=== PATIENT | female | born 1955 | race Caucasian/White ===

== ENCOUNTER 2023-04-25 18:01 | Emergency (ER) | payer BC, SELFPAY ==
[2023-04-25 18:05] VITALS: BP 147/101; PULSE 77; RESP 20; TEMP 36.7; O2SAT 97; BMI 37.5
[2023-04-25 18:08] VITALS: BP 147/101
--- NOTE | 2023-04-25 18:44 | PC.NURSE ---
pt states she was flown to another hospital d/t a critically low sodium. pt reports the family purposly having foods and drinks in the house and this may be making her feel sick. she goes off into tangents and has to be redirected several times during assessment
--- NOTE | 2023-04-25 18:47 | PC.NURSE ---
bilat lungs clear with no cough observed with assessment
[2023-04-25] MEDS: 0.9 % SODIUM CHLORIDE 1,000 ML 999 ML IV (18:50)
[2023-04-25 19:00] LABS: Basophils Absolute Auto 0.1 10^3/uL (0.0-0.1); Basophils Percent Auto 0.6 % (0.2-2.0); Eosinophils Percent Auto 0.3 % (0.9-7.0); Hematocrit 41.7 % (36.0-48.0); Hemoglobin 14.1 g/dL (12.0-16.0); Immature Granulocytes Abs Auto 0.04 10^3/uL (0.00-0.03); Immature Granulocytes Pct Auto 0.4 % (0.0-0.5); Lymphocytes Absolute Auto 3.3 10^3/uL (1.2-3.8); Lymphocytes Percent Auto 34.7 % (20.5-60.0); Mean Corpuscular HGB Conc 33.8 g/dL (29.9-35.2); Mean Corpuscular Hemoglobin 29.6 pg (26.7-34.0); Mean Corpuscular Volume 87.6 fL (81.0-99.0); Mean Platelet Volume 9.8 fL (9.5-13.5); Monocytes Absolute Auto 0.9 10^3/uL (0.3-0.8); Monocytes Percent Auto 9.1 % (1.7-12.0); Neutrophils Absolute Auto 5.3 10^3/uL (1.4-6.5); Neutrophils Percent Auto 54.9 % (43.0-75.0); Platelet Count 334 10^3/uL (150-450); Red Blood Count 4.76 10^6/uL (4.20-5.40); Red Cell Distribution Width 13.8 % (11.0-15.0); White Blood Count 9.6 10^3/uL (4.0-11.0)
[2023-04-25 19:10] LABS: Anion Gap 12.3; BUN Creatinine Ratio 26.7; Calcium 9.3 mg/dL (8.5-10.1); Carbon Dioxide 28.8 mmol/L (21.0-32.0); Chloride 95 mmol/L (98-107); Estimated GFR (African America >60 (>=60); Estimated GFR (Non-African Ame >60 (>=60); Glucose 114 mg/dL (74-106); Magnesium 1.7 mg/dL (1.8-2.4); Potassium 4.1 mmol/L (3.5-5.1); Sodium 132 mmol/L (136-145)
--- NOTE | 2023-04-25 19:29 | ECG_ITS ---
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
[2023-04-25 19:33] VITALS: PULSE 92; RESP 18
[2023-04-25 19:57] LABS: Bilirubin Urine NEGATIVE (NEGATIVE); Blood Urine SMALL (NEGATIVE); Clarity Urine CLEAR (CLEAR); Color Urine LT. YELLOW (YELLOW); Glucose Urine UA NEGATIVE (NEGATIVE); Ketones Urine TRACE mg/dL (NEGATIVE); Leukocyte Esterase Urine SMALL (NEGATIVE); Nitrite Urine NEGATIVE (NEGATIVE); Protein Urine NEGATIVE (NEG/TRACE); Specific Gravity Urine 1.015 (1.005-1.025); Urobilinogen Urine 0.2 EU/dL (0.2-1.0); pH Urine 7.5 (5.0-9.0)
[2023-04-25 20:06] LABS: Urine Microscopic Indicated YES
[2023-04-25 20:07] LABS: Bacteria Urine TRACE #/HPF (NONE SEEN); Mucus Urine NONE SEEN (NONE SEEN); Squamous Epithelial Cell Urine FEW #/LPF (NONE/RARE)
[2023-04-25 20:08] LABS: Cast Seen? NONE SEEN #/LPF (NONE SEEN); Crystals Seen? None Seen #/HPF (None Seen); Urine Culture Indicated YES
[2023-04-25 20:10] LABS: Amphetamine Screen Urine NEGATIVE (NEGATIVE); Barbiturates Screen Urine NEGATIVE (NEGATIVE); Benzodiazepines Screen Urine NEGATIVE (NEGATIVE); Buprenorphine Screen Urine NEGATIVE (NEGATIVE); Cannabinoid Screen Urine NEGATIVE (NEGATIVE); Cocaine Screen Urine NEGATIVE (NEGATIVE); Methadone Screen Urine NEGATIVE (NEGATIVE); Methamphetamines Screen Urine NEGATIVE (NEGATIVE); Opiate Screen Urine NEGATIVE (NEGATIVE); Oxycodone Screen Urine NEGATIVE (NEGATIVE); Phencyclidine Screen Urine NEGATIVE (NEGATIVE); Tricyclic Antidepressant Urine NEGATIVE (NEGATIVE)
[2023-04-25 20:11] LABS: Ammonia <10 umol/L (11-32)
[2023-04-25 20:27] LABS: Salicylate <2.8 mg/dL (<=19.9)
[2023-04-25 20:28] LABS: Acetaminophen <2.0 ug/mL (10.0-30.0)
[2023-04-25 20:29] LABS: Ethanol <3 mg/dL
[2023-04-25 23:25] VITALS: BP 171/79; O2SAT 98
[2023-04-26 15:18] LABS: SARS-CoV-2 Ag NEGATIVE (NEGATIVE)
[2023-04-27 15:17] LABS: SARS-CoV-2 NAA NOT DETECTED (NOT DETECTE)
== END 2023-04-26 04:20 ==
PROVIDERS: Emergency Medicine; Emergency Provider Emergency Medicine; PCP Family Medicine
DX: F31.9 Bipolar disorder, unspecified (principal); Z79.82 Long term (current) use of aspirin; Z79.899 Other long term (current) drug therapy; Z20.822 Contact with and (suspected) exposure to COVID-19
CPT/HCPCS: 36415; 80048; 80179; 80307; 80320; 80329; 81001; 82140; 83735; 85025; 87086; 87635; 87811; 93005; 99284